=== PATIENT | female | born 1960 | race Caucasian/White ===

== ENCOUNTER 2022-07-25 11:31 | Inpatient (IN) | payer MEDICAID ==
[~2022-07-25] VITALS: Ht 160 cm; Wt 81.6 kg
[~2022-07-25 11:31] MED LIST: ASPIRIN; METFORMIN
--- NOTE | 2022-07-25 11:39 | NUR ---
BIB WHEELCHAIR TO ER BED 2
[2022-07-25 11:45] VITALS: BP 201/91
[2022-07-25] MEDS ORDERED: NITROGLYCERIN 0.4 MG TAB SL ONE (12:05)
[2022-07-25] MEDS ORDERED: FUROSEMIDE 100 MG/10 ML VIAL IVP ONE (12:05)
[2022-07-25 12:43] LABS: BASOPHILS # (AUTO) 0.1 K/uL (0.00-0.22); BASOPHILS % (AUTO) 0.9 % (0.0-2.0); EOSINOPHILS # (AUTO) 0.2 K/uL (0-0.4); EOSINOPHILS % (AUTO) 2.7 % (0.0-4.0); HEMATOCRIT 27.4 % (36-48); HEMOGLOBIN 9.6 g/dL (12.0-16.0); LYMPHOCYTES # (AUTO) 1.9 K/uL (2.5-16.5); LYMPHOCYTES % (AUTO) 29.2 % (20.5-51.1); MEAN CORPUSCULAR HEMOGLOBIN 29 pg (27-31); MEAN CORPUSCULAR HGB CONC 35 g/dL (33-37); MONOCYTES # (AUTO) 0.5 K/uL (0.8-1.0); MONOCYTES % (AUTO) 8.3 % (1.7-9.3); NEUTROPHILS # (AUTO) 3.8 K/uL (1.8-7.7); NEUTROPHILS % (AUTO) 58.9 % (42.2-75.2); PLATELET COUNT (AUTO) 199 K/uL (140-450); RED BLOOD CELL COUNT(AUTO) 3.31 MIL/uL (4.20-5.40); RED CELL DISTRIBUTION WIDTH 17.1 % (11.6-13.7); WHITE BLOOD COUNT (AUTO) 6.4 K/uL (4.8-10.8)
[2022-07-25 12:58] LABS: PROTHROMBIN TIME 10.5 secs (10.8-13.4)
[2022-07-25 13:08] LABS: ALBUMIN 3.4 g/dL (3.4-5.0); ANION GAP 11.7 (8-16); CARBON DIOXIDE 34.3 mmol/L (21-32)
--- NOTE | 2022-07-25 13:13 | NUR ---
PATIENT WAS ASSISTED TO THE RESTROOM. URINE SAMPLE OBTAINED.
[2022-07-25 13:19] LABS: APPEARANCE,URINE CLEAR (CLEAR); BILIRUBIN,URINE NEGATIVE (NEGATIVE); BLOOD, URINE 1+ (NEGATIVE); COLOR,URINE YELLOW (YELLOW); LEUKOCYTE ESTERASE ,URINE TRACE (NEGATIVE); NITRITE, URINE NEGATIVE (NEGATIVE); UGLUCOSE NEGATIVE (NEGATIVE)
[2022-07-25 13:57] LABS: WBC,URINE 0-5 /HPF (0-5)
[2022-07-25] MEDS ORDERED: NITROGLYCERIN 0.4 MG TAB SL PRN (14:20)
[2022-07-25] MEDS ORDERED: MAG SULF 2000 MG/WATER PREMIX 50 ML IV PRN (14:20)
[2022-07-25] MEDS ORDERED: ONDANSETRON 4 MG/2 ML VIAL IVP PRN (14:20)
[2022-07-25] MEDS ORDERED: INSULIN LISPRO SLIDING SCALE 100 UNITS/ML VIAL SUBQ PRN (14:20)
[2022-07-25] MEDS ORDERED: DEXTROSE 50% 50 ML SYR IVP PRN ×2 (14:20)
[2022-07-25] MEDS ORDERED: ACETAMINOPHEN 325 MG TAB PO PRN (14:20)
[2022-07-25 15:06] LABS: BASOPHILS # (AUTO) 0.1 K/uL (0.00-0.22); BASOPHILS % (AUTO) 1.1 % (0.0-2.0); EOSINOPHILS # (AUTO) 0.1 K/uL (0-0.4); EOSINOPHILS % (AUTO) 2.4 % (0.0-4.0); HEMATOCRIT 29.8 % (36-48); HEMOGLOBIN 10.5 g/dL (12.0-16.0); LYMPHOCYTES # (AUTO) 1.8 K/uL (2.5-16.5); LYMPHOCYTES % (AUTO) 28.3 % (20.5-51.1); MEAN CORPUSCULAR HEMOGLOBIN 29 pg (27-31); MEAN CORPUSCULAR HGB CONC 35 g/dL (33-37); MEAN CORPUSCULAR VOLUME 82.7 fL (80-94); MONOCYTES # (AUTO) 0.5 K/uL (0.8-1.0); MONOCYTES % (AUTO) 7.5 % (1.7-9.3); NEUTROPHILS # (AUTO) 3.8 K/uL (1.8-7.7); NEUTROPHILS % (AUTO) 60.7 % (42.2-75.2); PLATELET COUNT (AUTO) 212 K/uL (140-450); RED BLOOD CELL COUNT(AUTO) 3.61 MIL/uL (4.20-5.40); RED CELL DISTRIBUTION WIDTH 17.1 % (11.6-13.7); WHITE BLOOD COUNT (AUTO) 6.2 K/uL (4.8-10.8)
[2022-07-25 15:25] LABS: ANION GAP 8.7 (8-16); CARBON DIOXIDE 38.1 mmol/L (21-32)
[2022-07-25 15:26] LABS: PROTHROMBIN TIME 10.4 secs (10.8-13.4)
[2022-07-25 15:27] LABS: POTASSIUM 2.8 mmol/L (3.5-5.1)
[2022-07-25] MEDS: POTASSIUM CHLORIDE 10 MEQ TABER PO PRN (15:43)
[2022-07-25 16:53] LABS: AMYLASE 61 U/L (25-115); CHOL/HDL RATIO 3.5 (1-4.5); FREE T4 (FREE THYROXINE) 1.38 ng/dL (0.76-1.46); HDL CHOLESTEROL 57 mg/dL (40-60); LDL (CALC) 124 mg/dL (60-100); LIPASE 58 U/L (73-393); MAGNESIUM 1.8 mg/dL (1.8-2.4); PHOSPHORUS 5.7 mg/dL (2.5-4.9); THYROID STIMULATING HORMONE 1.87 uIU/mL (0.34-3.74); TRIGLYCERIDES 106 mg/dL (30-150)
[2022-07-25] MEDS: BLOOD GLUCOSE MONITORING 1 DEV DEV FS SCH ×2 (16:59→20:30)
[2022-07-25 17:16] LABS: BARBITURATE, URINE NEGATIVE ng/ml (NEG <=200); BENZODIAZEPINE, URINE NEGATIVE ng/mL (NEG <=200); CANNABINOID, URINE NEGATIVE ng/mL (NEG <=50); COCAINE, URINE NEGATIVE ng/mL (NEG <=300); OPIATE, URINE NEGATIVE ng/mL (NEG <=2000); PHENCYCLIDINE SCREEN,URINE NEGATIVE ng/mL (NEG <=25)
--- NOTE | 2022-07-25 19:26 | NUR ---
Patient resting in bed A/Ox4, chest rise and fall symmetrical, no c/o pain or s/s of distress.
--- NOTE | 2022-07-25 19:44 | NUR ---
Patient eating dinner and drinking fluids without difficulty.
[2022-07-25] MEDS ORDERED: CARV12.5 PO (20:09)
[2022-07-25] MEDS ORDERED: LISI40TA12 PO (20:09)
[2022-07-25] MEDS ORDERED: BEN10 PO (20:09)
[2022-07-25] MEDS ORDERED: AMLO5TAB PO (20:09)
[2022-07-25] MEDS ORDERED: FURO-570 PO (20:09)
[2022-07-25] MEDS ORDERED: IBUP-2213 PO (20:09)
[2022-07-25] MEDS ORDERED: OMEP20EC11 PO (20:09)
[2022-07-25] MEDS ORDERED: GABA100C PO (20:09)
[2022-07-25] MEDS: HYDROcodone/APAP 7.5/325 MG 1 TAB PO PRN (20:16)
[2022-07-25] MEDS: ATORVASTATIN 20 MG TAB PO SCH (20:17)
[2022-07-25] MEDS: DOCUSATE SODIUM 100 MG GELCAP PO SCH (20:18)
[2022-07-25] MEDS ORDERED: CRUSHER, PILL MC ONE (20:32)
[2022-07-25] MEDS ORDERED: METOPROLOL 25 MG TAB PO SCH (21:00)
--- NOTE | 2022-07-25 21:37 | NUR ---
Patient resting in bed A/Ox4, chest rise and fall symmetrical, no c/o pain or s/s of distress.
--- NOTE | 2022-07-25 23:10 | NUR ---
Patient resting in bed A/Ox4, chest rise and fall symmetrical, no c/o pain or s/s of distress.
[2022-07-26] MEDS: hydrALAZINE 20 MG/ML VIAL IVP PRN ×3 (01:04→20:16)
--- NOTE | 2022-07-26 02:08 | NUR ---
Patient resting in bed A/Ox4, chest rise and fall symmetrical, no c/o pain or s/s of distress.
--- NOTE | 2022-07-26 04:00 | NUR ---
Patient resting in bed A/Ox4, chest rise and fall symmetrical, no c/o pain or s/s of distress.
--- NOTE | 2022-07-26 06:13 | NUR ---
Patient resting in bed A/Ox4, chest rise and fall symmetrical, no c/o pain or s/s of distress.
[2022-07-26] MEDS: HYDROcodone/APAP 7.5/325 MG 1 TAB PO PRN ×2 (06:40→15:22)
[2022-07-26] MEDS: BLOOD GLUCOSE MONITORING 1 DEV DEV FS SCH ×4 (06:44→20:19)
--- NOTE | 2022-07-26 07:30 | NUR ---
Change of shift report given to AM shift nurse Kvng RN. Kvng RN verbalized understanding of report, no further questions.
[2022-07-26] MEDS ORDERED: lisinopriL 5 MG TAB PO SCH (09:00)
[2022-07-26] MEDS: PANTOPRAZOLE 40 MG INJ VIAL IVP SCH (09:00)
--- NOTE | 2022-07-26 09:00 | NUR ---
Patient will be admitted to care of DR ALMEIDA. Admited to TELE. Will go to room 112A. Belongings list completed. Report to MITCHELL.
[2022-07-26 09:09] VITALS: BP 171/70
[2022-07-26] MEDS: METOPROLOL 25 MG TAB PO SCH ×2 (11:01→20:20)
[2022-07-26] MEDS: DOCUSATE SODIUM 100 MG GELCAP PO SCH ×2 (11:02→20:19)
[2022-07-26] MEDS: ASPIRIN 81 MG TAB.CHEW PO SCH (11:02)
[2022-07-26] MEDS: INSULIN LISPRO SLIDING SCALE 100 UNITS/ML VIAL SUBQ PRN ×2 (11:53→16:58)
--- NOTE | 2022-07-26 16:46 | NUR ---
PATIENT HAS BEEN SCREENED AND CATEGORIZED MODERATE NUTRITION RISK. PATIENT WILL BE SEEN WITHIN 3-5 DAYS OF ADMISSION. 07/29/22-07/31/22
--- NOTE | 2022-07-26 19:30 | NUR ---
RECEIVED REPORT FROM DAY SHIFT NURSE BRIONNA FOR CONTINUITY OF CARE. PATIENT IS A&O X4. PATIENT IS ON 2L NC, BREATHING IS NORMAL WITH SYMMETRICAL RISE AND FALL OF CHEST. IV IS A 22G R HAND, NO FLUIDS RUNNING AT THIS TIME (SALINE LOCKED). PATIENT IS SITTING IN HIGH-FOWLERS POSITION, WATCHING TELEVISION. BED IS IN LOWEST POSITION, WHEELS LOCKED CALL LIGHT IN PLACE. WILL CONTINUE TO OBSERVE PATIENT.
[2022-07-26 20:00] VITALS: BP 179/76
--- NOTE | 2022-07-26 20:30 | NUR ---
PATIENT HAD BLED ON PILLOW CASE AND GOWN DURING DAY SHIFT. HELPED PATIENT AMBULATE TO BATHROOM AND CHANGED PILLOW CASE AND PUT NEW GOWN ON PATIENT. PATIENT'S GAIT IS UNSTEADY DUE TO GENERAL WEAKNESS. 2100 MEDICATIONS WERE ADMINISTERED SUCCESSFULLY WITHOUT ANY DIFFICULTY IN SWALLOWING. PATIENT IS SAFELY BACK IN BED, WATCHING TV. WILL CONTINUE TO OBSERVE PATIENT.
[2022-07-26] MEDS: ATORVASTATIN 20 MG TAB PO SCH (21:00)
[2022-07-27] VITALS: BP 179/60
[2022-07-27] MEDS: HYDROcodone/APAP 7.5/325 MG 1 TAB PO PRN ×3 (00:30→15:47)
[2022-07-27 04:00] VITALS: BP 176/71
[2022-07-27] MEDS: hydrALAZINE 20 MG/ML VIAL IVP PRN ×2 (05:49→11:58)
--- NOTE | 2022-07-27 05:53 | NUR ---
ADMINISTERED HYDRALAZINE TO PATIENT FOR BP OF 176/71. PATIENT TOLERATED WELL. WILL CONTINUE TO OBSERVE PATIENT.
[2022-07-27] MEDS: BLOOD GLUCOSE MONITORING 1 DEV DEV FS SCH ×4 (06:55→20:49)
[2022-07-27 07:01] LABS: BASOPHILS # (AUTO) 0.1 K/uL (0.00-0.22); BASOPHILS % (AUTO) 1.1 % (0.0-2.0); EOSINOPHILS # (AUTO) 0.2 K/uL (0-0.4); EOSINOPHILS % (AUTO) 2.8 % (0.0-4.0); HEMATOCRIT 27.7 % (36-48); HEMOGLOBIN 9.6 g/dL (12.0-16.0); LYMPHOCYTES # (AUTO) 1.9 K/uL (2.5-16.5); LYMPHOCYTES % (AUTO) 29.5 % (20.5-51.1); MEAN CORPUSCULAR HEMOGLOBIN 29 pg (27-31); MEAN CORPUSCULAR HGB CONC 35 g/dL (33-37); MEAN CORPUSCULAR VOLUME 83.9 fL (80-94); MONOCYTES # (AUTO) 0.5 K/uL (0.8-1.0); MONOCYTES % (AUTO) 7.9 % (1.7-9.3); NEUTROPHILS # (AUTO) 3.9 K/uL (1.8-7.7); NEUTROPHILS % (AUTO) 58.7 % (42.2-75.2); PLATELET COUNT (AUTO) 200 K/uL (140-450); RED BLOOD CELL COUNT(AUTO) 3.31 MIL/uL (4.20-5.40); RED CELL DISTRIBUTION WIDTH 16.8 % (11.6-13.7); WHITE BLOOD COUNT (AUTO) 6.6 K/uL (4.8-10.8)
--- NOTE | 2022-07-27 07:02 | NUR ---
REASSESSED PATIENT'S BP & HR AT 0650; BP WAS: 168/70, HR WAS: 76. PATIENT ALSO REQUESTED ANOTHER NORCO FOR PAIN. ADMINISTERED NORCO. PATIENT TOLERATED WELL. WILL ENDORSE CARE TO DAY SHIFT NURSE.
[2022-07-27 07:11] LABS: ANION GAP 9.1 (8-16); CARBON DIOXIDE 37.9 mmol/L (21-32); CREATININE 0.9 mg/dL (0.6-1.3)
[2022-07-27 07:29] LABS: MAGNESIUM 1.6 mg/dL (1.8-2.4); PHOSPHORUS 5.2 mg/dL (2.5-4.9)
--- NOTE | 2022-07-27 07:40 | NUR ---
ENDORSED TO DAY SHIFT NURSE JADYN FOR CONTINUITY OF CARE. PATIENT IS STABLE.
[2022-07-27 07:50] VITALS: BP 155/58
[2022-07-27] MEDS: lisinopriL 20 MG TAB PO SCH (09:19)
[2022-07-27] MEDS: ASPIRIN 81 MG TAB.CHEW PO SCH (09:19)
[2022-07-27] MEDS: METOPROLOL 25 MG TAB PO SCH ×2 (09:20→20:48)
[2022-07-27] MEDS: DOCUSATE SODIUM 100 MG GELCAP PO SCH ×2 (09:20→20:49)
[2022-07-27] MEDS: PANTOPRAZOLE 40 MG INJ VIAL IVP SCH (09:20)
[2022-07-27] MEDS: FUROSEMIDE 40 MG TAB PO SCH (10:29)
[2022-07-27] MEDS: INSULIN LISPRO SLIDING SCALE 100 UNITS/ML VIAL SUBQ PRN (11:39)
[2022-07-27] MEDS: POTASSIUM CHLORIDE 10 MEQ TABER PO PRN (11:41)
[2022-07-27 11:53] VITALS: BP 191/76
[2022-07-27 15:53] VITALS: BP 145/71
[2022-07-27 20:00] VITALS: BP 163/80
[2022-07-27] MEDS: ATORVASTATIN 20 MG TAB PO SCH (20:48)
[2022-07-28] VITALS: BP 145/72
[2022-07-28] MEDS: HYDROcodone/APAP 7.5/325 MG 1 TAB PO PRN ×2 (01:26→07:56)
[2022-07-28 04:00] VITALS: BP 138/69
[2022-07-28] MEDS: BLOOD GLUCOSE MONITORING 1 DEV DEV FS SCH (06:38)
[2022-07-28 07:08] LABS: BASOPHILS # (AUTO) 0.1 K/uL (0.00-0.22); BASOPHILS % (AUTO) 0.8 % (0.0-2.0); EOSINOPHILS # (AUTO) 0.2 K/uL (0-0.4); EOSINOPHILS % (AUTO) 3.4 % (0.0-4.0); HEMATOCRIT 24.5 % (36-48); HEMOGLOBIN 8.5 g/dL (12.0-16.0); LYMPHOCYTES # (AUTO) 1.8 K/uL (2.5-16.5); LYMPHOCYTES % (AUTO) 26.7 % (20.5-51.1); MAGNESIUM 1.6 mg/dL (1.8-2.4); MEAN CORPUSCULAR HEMOGLOBIN 29 pg (27-31); MEAN CORPUSCULAR HGB CONC 35 g/dL (33-37); MEAN CORPUSCULAR VOLUME 83.5 fL (80-94); MONOCYTES # (AUTO) 0.6 K/uL (0.8-1.0); MONOCYTES % (AUTO) 8.8 % (1.7-9.3); NEUTROPHILS % (AUTO) 60.3 % (42.2-75.2); PHOSPHORUS 4.1 mg/dL (2.5-4.9); PLATELET COUNT (AUTO) 193 K/uL (140-450); RED BLOOD CELL COUNT(AUTO) 2.94 MIL/uL (4.20-5.40); RED CELL DISTRIBUTION WIDTH 16.9 % (11.6-13.7); WHITE BLOOD COUNT (AUTO) 6.6 K/uL (4.8-10.8)
[2022-07-28 07:18] LABS: ANION GAP 9.2 (8-16); CARBON DIOXIDE 36.2 mmol/L (21-32); CREATININE 0.9 mg/dL (0.6-1.3); POTASSIUM 3.4 mmol/L (3.5-5.1)
[2022-07-28 08:08] VITALS: BP 167/88
[2022-07-28] MEDS: DOCUSATE SODIUM 100 MG GELCAP PO SCH (08:15)
[2022-07-28] MEDS: FUROSEMIDE 40 MG TAB PO SCH (08:15)
[2022-07-28] MEDS: PANTOPRAZOLE 40 MG INJ VIAL IVP SCH (08:15)
[2022-07-28] MEDS: ASPIRIN 81 MG TAB.CHEW PO SCH (08:15)
[2022-07-28] MEDS: lisinopriL 20 MG TAB PO SCH (08:16)
[2022-07-28] MEDS: METOPROLOL 25 MG TAB PO SCH (08:16)
--- NOTE | 2022-07-28 08:24 | NUR ---
Patient request for lactulose for bowel regimen. Will ask for MD approval.
[2022-07-28] MEDS ORDERED: hydrALAZINE 10 MG TAB PO SCH (09:00)
[2022-07-28] MEDS: hydrALAZINE 20 MG/ML VIAL IVP PRN (09:38)
[2022-07-28] MEDS ORDERED: FURO-570 PO (10:03)
[2022-07-28] MEDS ORDERED: LISI40TA12 PO (10:03)
[2022-07-28] MEDS ORDERED: ASPI-1749 PO (10:03)
[2022-07-28] MEDS ORDERED: CARV12.5 PO (10:03)
[2022-07-28] MEDS ORDERED: APR10 PO (10:03)
[2022-07-28 10:51] VITALS: BP 158/64
--- NOTE | 2022-07-28 10:55 | NUR ---
Patient daughter present for discharge instruction. A copy was present for patient and family to review and sign and take home. Intravenous catheter tip intact upon removal. It is a 22 gauge. Patient took all belongings prior to leaving home. Removal of hospital identification bracelet.
== END 2022-07-28 11:20 | disposition home or self-care (01) | DRG 194 ==
LOC: MED 11:31 → MERGE 11:31 → MTU 13:20
DX: I11.0 Hypertensive heart disease with heart failure (principal); N17.0 Acute kidney failure with tubular necrosis; E86.0 Dehydration; E44.1 Mild protein-calorie malnutrition; E87.3 Alkalosis; K81.9 Cholecystitis, unspecified; I50.43 Acute on chronic combined systolic (congestive) and diastolic (congestive) heart failure; Z20.822 Contact with and (suspected) exposure to COVID-19; T50.1X5A Adverse effect of loop [high-ceiling] diuretics, initial encounter; E78.00 Pure hypercholesterolemia, unspecified; I16.0 Hypertensive urgency; K21.9 Gastro-esophageal reflux disease without esophagitis; D64.9 Anemia, unspecified; Z90.49 Acquired absence of other specified parts of digestive tract; Z79.82 Long term (current) use of aspirin; Z79.899 Other long term (current) drug therapy; Y92.89 Other specified places as the place of occurrence of the external cause; Z68.31 Body mass index [BMI] 31.0-31.9, adult
CPT/HCPCS: 36415; 36600; 71045; 76604; 80048; 80053; 80305; 81001; 82140; 82150; 82550; 82553; 82803; 83036; 83605; 83690; 83735; 83880; 84100; 84439; 84443; 84484; 85025; 85610; 85730; 87040; 87081; 87086; 96374; 99285; C9113; J0360; J1644; J1815; J1940; Q0092

== ENCOUNTER 2023-01-28 13:19 | Emergency (ER) | payer MEDICAID ==
[~2023-01-28] VITALS: Ht 157.5 cm; Wt 108.9 kg
[~2023-01-28 13:19] MED LIST changes: +AMLO5TAB PO; +APR10 PO; +ASPI-1749 PO; -ASPIRIN; +BEN10 PO; +CARV12.5 PO; +FURO-570 PO; +GABA100C PO; +IBUP-2213 PO; +LISI40TA12 PO; +OMEP20EC11 PO
[2023-01-28 13:25] VITALS: BP 179/76; PULSE 87; RESP 18; TEMP 98.1; O2SAT 99
[2023-01-28] MEDS ORDERED: KETOROLAC 30 MG/ML VIAL ONE (18:55)
[2023-01-28] MEDS ORDERED: FLUORESCEIN OPTH STRIP 1 MG ONE (19:55)
== END 2023-01-28 15:36 | disposition left against medical advice (07) ==
LOC: MED 13:19
DX: R21 Rash and other nonspecific skin eruption (principal); H53.8 Other visual disturbances; Z53.21 Procedure and treatment not carried out due to patient leaving prior to being seen by health care provider
CPT/HCPCS: 99281; J1885